=== PATIENT | male | born 1990 | race Two or more races ===

== ENCOUNTER 2017-11-23 15:45 | Emergency (ER) | payer OTHER ==
[~2017-11-23] VITALS: Ht 170.2 cm; Wt 94.5 kg
[2017-11-23] MEDS ORDERED: KEFLEX500 MG PO (17:51)
[2017-11-23] MEDS ORDERED: MOTRIN800 MG PO (17:51)
[2017-11-23] MEDS ORDERED: ULTRAM50 MG PO (17:51)
[2017-11-23 18:47] VITALS: BP 130/87
== END 2017-11-23 18:53 | disposition home or self-care (01) ==
LOC: EME 15:45
DX: S61.211A Laceration without foreign body of left index finger without damage to nail, initial encounter (principal); S61.213A Laceration without foreign body of left middle finger without damage to nail, initial encounter; S62.601A Fracture of unspecified phalanx of left index finger, initial encounter for closed fracture; X99.1XXA Assault by knife, initial encounter; F17.200 Nicotine dependence, unspecified, uncomplicated; Z23 Encounter for immunization
CPT/HCPCS: 73130; 99281; 99284; S0020

== ENCOUNTER 2017-12-28 02:51 | Emergency (ER) | payer OTHER ==
[~2017-12-28] VITALS: Ht 170.2 cm; Wt 94.0 kg
[~2017-12-28 02:51] MED LIST: KEFLEX500 MG PO; MOTRIN800 MG PO; ULTRAM50 MG PO
[2017-12-28 04:12] VITALS: BP 128/73
[2017-12-28 04:14] LABS: SOURCE URINE
[2017-12-28 05:15] LABS: APPEARANCE CLEAR ((CLEAR)); BILIRUBIN NEGATIVE; BLOOD NEGATIVE; COLOR YELLOW ((YELLOW)); GLUCOSE (STRIP) NEGATIVE; KETONES NEGATIVE; LEUKOCYTES NEGATIVE; NITRITE NEGATIVE; PROTEIN (STRIP) NEGATIVE; SPECIFIC GRAVITY 1.013 (1.000-1.030)
[2017-12-29 12:02] LABS: CHLAMYDIA TRACHOMATIS NEGATIVE; NEISSERIA GONORRHOEAE NEGATIVE
== END 2017-12-28 04:12 | disposition home or self-care (01) ==
LOC: EME 02:51
PROVIDERS: Physician Assistant
DX: Z04.8 Encounter for examination and observation for other specified reasons (principal)
CPT/HCPCS: 81003; 87491; 87591; 99281; 99284; J0696